=== PATIENT | female | born 1975 | race American Indian/Alaskan Native ===

== ENCOUNTER 2019-12-08 11:17 | Emergency (ER) | payer OTHER ==
--- NOTE | 2019-12-08 11:37 | Event Note ---
ED Screening Note Date of service: 12/08/19 Time: 11:34 ED Screening Note: 44 y o f presents with mid to right abd Pain x 2 days denies NVD 9/10 pain PMH: stroke Sep 2019, RECENT HOSPITALIZATION, htn OUT OF MEDS ELEVATION OF BP This initial assessment/diagnostic orders/clinical plan/treatment(s) is/are subject to change based on patients health status, clinical progression and re- assessment by fellow clinical providers in the ED. Further treatment and workup at subsequent clinical providers discretion. Patient/guardian urged not to elope from the ED as their condition may be serious if not clinically assessed and managed. Initial orders include: labs CT scan main Ed eval
[2019-12-08 12:18] LABS: Basophils # (Auto) 0.1 K/mm3 (0.0-0.1); Basophils % (Auto) 1.3 % (0.0-1.8); Eosinophils # (Auto) 0.1 K/mm3 (0.0-0.4); Eosinophils % (Auto) 1.1 % (0.0-4.3); Hematocrit 35.8 % (30.3-42.9); Hemoglobin 12.1 gm/dl (10.1-14.3); Lymphocytes # (Auto) 1.4 K/mm3 (1.2-5.4); Lymphocytes % (Auto) 24.8 % (13.4-35.0); Mean Corpuscular HGB Conc 34 % (30-34); Mean Corpuscular Volume 93 fl (79-97); Monocytes # (Auto) 0.4 K/mm3 (0.0-0.8); Monocytes % (Auto) 6.4 % (0.0-7.3); Platelet Count 397 K/mm3 (140-440); Red Blood Count 3.83 M/mm3 (3.65-5.03)
[2019-12-08 12:42] LABS: Albumin 3.4 g/dL (3.9-5); BUN/Creatinine Ratio 8; Blood Urea Nitrogen 6 mg/dL (7-17); Calcium 9.3 mg/dL (8.4-10.2); Hemolysis Index 6
[2019-12-08 12:51] LABS: Alanine Aminotransferase < 5 units/L (7-56)
--- NOTE | 2019-12-08 14:25 | Cat Scan Report ---
CT ABDOMEN AND PELVIS WITHOUT CONTRAST HISTORY: Right-sided abdominal pain COMPARISON: None. TECHNIQUE: Axial CT images were obtained through the abdomen and pelvis without IV contrast. Sagittal and coronal reformatted images. All CT scans at this location are performed using CT dose reduction for ALARA by means of automated exposure control. FINDINGS: CT ABDOMEN: Lung Bases: Clear. Liver: No significant abnormality. Biliary: No significant abnormality. Spleen: No significant abnormality. Unenlarged. Pancreas: No significant abnormality. Adrenals: No significant abnormality. Kidneys: No significant abnormality. Lymphatics: No lymphadenopathy. Vasculature: No significant abnormality. Bowel/Peritoneum: No significant abnormality. No free air. No free fluid. Normal appendix. CT PELVIS: : The uterus is markedly enlarged extending superior to the umbilicus. A 12 cm heterogeneous fibroi d is identified in the uterine fundus. A 7 cm heterogeneous fibroid is identified in the left lateral wall. A 4.2 cm heterogeneous fibroid is identified in the lower anterior wall. The ovaries and endom etrium are not clearly identified. Osseous Structures: No significant abnormality. Additional Findings: None IMPRESSION: Moderate to severe uterine fibroid disease as described. No acute inflammatory process is appreciated. Signer Name: Dru Thomson Jr, MD Signed: 12/08/2019 2:21 PM Workstation Name: [id number]
[2019-12-08] MEDS ORDERED: oxyCODONE /ACETAMINOPHEN 5-325MG TAB PO PRN (16:12)
[2019-12-08] MEDS ORDERED: carvediloL 6.25 MG TAB PO ONE (16:12)
--- NOTE | 2019-12-08 16:13 | Emergency Department Report ---
ED Abdominal Pain HPI - General Chief Complaint: Abdominal Pain Stated Complaint: RT SIDE EXTREME PAIN Time Seen by Provider: 12/08/19 11:31 Source: patient Mode of arrival: Wheelchair Limitations: No Limitations - History of Present Illness Initial Comments: This 44-year-old female presents to merged department with chief complaint of a gradual onset of severe pain in the right side of her lower abdomen. Patient rates as severe. Evaluated. The past medical history of hypertension and a hemorrhagic CVA. She is currently supposed to be on carvedilol, amlodipine and lisinopril but just ran out of her medications. She is not a primary care docto r. She denies any headache, weakness, slurred speech, facial droop or any other associated symptoms. Her only complaint today is right lower quadrant pain. She denies any associated fevers, chills, night sweats, headache, dizziness, blurry vision, nausea, vomiting, diarrhea, chest pain, shortness of breath or any other associated symptoms. - Related Data Previous Rx's Medication Instructions Recorded Last Taken Type Acetaminophen with Codeine 1 each PO Q6HR PRN #12 tablet 12/08/19 Unknown Rx [Acetaminophen-Codeine #2 TAB] amLODIPine 10 mg PO DAILY #20 tab 12/08/19 Unknown Rx carvediloL [Coreg] 12.5 mg PO BID #40 tablet 12/08/19 Unknown Rx lisinopriL [Zestril TAB] 20 mg PO QDAY #20 tablet 12/08/19 Unknown Rx Allergies Allergy/AdvReac Type Severity Reaction Status Date / Time No Known Allergies Allergy Unverified 12/08/19 11:24 ED Review of Systems ROS: Stated complaint: RT SIDE EXTREME PAIN Other details as noted in HPI Comment: All other systems reviewed and negative Constitutional: denies: chills, fever Eyes: denies: eye pain, eye discharge, vision change ENT: denies: ear pain, throat pain Respiratory: denies: cough, shortness of breath, wheezing Cardiovascular: denies: chest pain, palpitations Endocrine: no symptoms reported Gastrointestinal: as per HPI, abdominal pain. denies: nausea, diarrhea Genitourinary: denies: urgency, dysuria, discharge Musculoskeletal: denies: back pain, joint swelling, arthralgia Skin: denies: rash, lesions Neurological: denies: headache, weakness, paresthesias Psychiatric: denies: anxiety, depression Hematological/Lymphatic: denies: easy bleeding, easy bruising ED Past Medical Hx - Past Medical History Previous Medical History?: Yes Hx Hypertension: Yes Hx CVA: Yes Additional medical history: Hemorhagic stroke 2018 - Surgical History Past Surgical History?: Yes - Social History Smoking Status: Never Smoker Substance Use Type: None - Medications Home Medications: Home Medications Medication Instructions Recorded Confirmed Last Taken Type Acetaminophen with Codeine 1 each PO Q6HR PRN #12 tablet 12/08/19 Unknown Rx [Acetaminophen-Codeine #2 TAB] amLODIPine 10 mg PO DAILY #20 tab 12/08/19 Unknown Rx carvediloL [Coreg] 12.5 mg PO BID #40 tablet 12/08/19 Unknown Rx lisinopriL [Zestril TAB] 20 mg PO QDAY #20 tablet 12/08/19 Unknown Rx ED Physical Exam - General Limitations: No Limitations General appearance: alert, in no apparent distress - Head Head exam: Present: atraumatic, normocephalic - Eye Eye exam: Present: normal appearance, PERRL, EOMI Pupils: Present: normal accommodation - ENT ENT exam: Present: normal exam, normal orophraynx, mucous membranes moist - Neck Neck exam: Present: normal inspection, full ROM. Absent: tenderness, mening ismus - Respiratory Respiratory exam: Present: normal lung sounds bilaterally. Absent: respiratory distress, wheezes, rales, rhonchi, stridor - Cardiovascular Cardiovascular Exam: Present: regular rate, normal rhythm, normal heart sounds. Absent: systolic murmur, diastolic murmur, rubs, gallop - GI/Abdominal GI/Abdominal exam: Present: soft, tenderness (to the right lower quadrant over McBurney's point. No rebound or guarding. No CVA tenderness bilaterally.), normal bowel sounds. Absent: distended, guarding, rebound, rigid - Extremities Exam Extremities exam: Present: normal inspection, full ROM, normal capillary refill. Absent: tenderness - Back Exam Back exam: Present: normal inspection, full ROM. Absent: tenderness, CVA tenderness (R), CVA tenderness (L) - Neurological Exam Neurological exam: Present: alert, oriented X3, CN II-XII intact, normal gait, other (no focal neurologic deficits, normal strength and sensation of the bilateral upper and lower extremities.) - Psychiatric Psychiatric exam: Present: normal affect, normal mood - Skin Skin exam: Present: warm, dry, intact, normal color. Absent: rash ED Course Vital Signs 12/08/19 12/08/19 12/08/19 11:20 11:33 17:45 Temperature 98.5 F Pulse Rate 95 H 93 H 95 H Respiratory 18 18 Rate Blood Pressure 194/131 193/133 194/131 O2 Sat by Pulse 99 98 Oximetry ED Medical Decision Making - Lab Data Result diagrams: 12/08/19 12:02 12/08/19 12:02 Lab Results 12/08/19 12/08/19 12/08/19 Range/Units 12:02 12:02 12:02 WBC 5.8 (4.5-11.0) K/mm3 RBC 3.83 (3.65-5.03) M/mm3 Hgb 12.1 (10.1-14.3) gm/dl Hct 35.8 (30.3-42.9) % MCV 93 (79-97) fl MCH 32 (28-32) pg MCHC 34 (30-34) % RDW 15.0 (13.2-15.2) % Plt Count 397 (140-440) K/mm3 Lymph % (Auto) 24.8 (13.4-35.0) % [place] % (Auto) 6.4 (0.0-7.3) % Eos % (Auto) 1.1 (0.0-4.3) % Baso % (Auto) 1.3 (0.0-1.8) % Lymph # 1.4 (1.2-5.4) K/mm3 [place] # 0.4 (0.0-0.8) K/mm3 Eos # 0.1 (0.0-0.4) K/mm3 Baso # 0.1 (0.0-0.1) K/mm3 Seg Neutrophils % 66.4 (40.0-70.0) % Seg Neutrophils # 3.8 (1.8-7.7) K/mm3 Sodium 138 (137-145) mmol/L Potassium 3.8 (3.6-5.0) mmol/L Chloride 106.3 (98-107) mmol/L Carbon Dioxide 19 L (22-30) mmol/L Anion Gap 17 mmol/L BUN 6 L (7-17) mg/dL Creatinine 0.8 (0.7-1.2) mg/dL Estimated GFR > 60 ml/min BUN/Creatinine Ratio 8 % Glucose 104 H (65-100) mg/dL Calcium 9.3 (8.4-10.2) mg/dL Total Bilirubin 0.20 (0.1-1.2) mg/dL AST 8 (5-40) units/L ALT < 5 L (7-56) units/L Alkaline Phosphatase 87 (35-129) units/L Total Protein 8.0 (6.3-8.2) g/dL Albumin 3.4 L (3.9-5) g/dL Albumin/Globulin Ratio 0.7 % HCG, Quant < 2 (0-4) mIU/mL Urine Color (Yellow) Urine Turbidity (Clear) Urine pH (5.0-7.0) Ur Specific [place] (1.003-1.030) Urine Protein (Negative) mg/dL Urine Glucose (UA) (Negative) mg/dL Urine Ketones (Negative) mg/dL Urine Blood (Negative) Urine Nitrite (Negative) Urine Bilirubin (Negative) Urine Urobilinogen (<2.0) mg/dL Ur Leukocyte Esterase (Negative) Urine WBC (Auto) (0.0-6.0) /HPF Urine RBC (Auto) (0.0-6.0) /HPF U Epithel Cells (Auto) (0-13.0) /HPF Urine Mucus /HPF 12/08/19 Range/Units 17:40 WBC (4.5-11.0) K/mm3 RBC (3.65-5.03) M/mm3 Hgb (10.1-14.3) gm/dl Hct (30.3-42.9) % MCV (79-97) fl MCH (28-32) pg MCHC (30-34) % RDW (13.2-15.2) % Plt Count (140-440) K/mm3 Lymph % (Auto) (13.4-35.0) % [place] % (Auto) (0.0-7.3) % Eos % (Auto) (0.0-4.3) % Baso % (Auto) (0.0-1.8) % Lymph # (1.2-5.4) K/mm3 [place] # (0.0-0.8) K/mm3 Eos # (0.0-0.4) K/mm3 Baso # (0.0-0.1) K/mm3 Seg Neutrophils % (40.0-70.0) % Seg Neutrophils # (1.8-7.7) K/mm3 Sodium (137-145) mmol/L Potassium (3.6-5.0) mmol/L Chloride (98-107) mmol/L Carbon Dioxide (22-30) mmol/L Anion Gap mmol/L BUN (7-17) mg/dL Creatinine (0.7-1.2) mg/dL Estimated GFR ml/min BUN/Creatinine Ratio % Glucose (65-100) mg/dL Calcium (8.4-10.2) mg/dL Total Bilirubin (0.1-1.2) mg/dL AST (5-40) units/L ALT (7-56) units/L Alkaline Phosphatase (35-129) units/L Total Protein (6.3-8.2) g/dL Albumin (3.9-5) g/dL Albumin/Globulin Ratio % HCG, Quant (0-4) mIU/mL Urine Color Yellow (Yellow) Urine Turbidity Clear (Clear) Urine pH 5.0 (5.0-7.0) Ur Specific [place] 1.016 (1.003-1.030) Urine Protein <15 mg/dl (Negative) mg/dL Urine Glucose (UA) Neg (Negative) mg/dL Urine Ketones Neg (Negative) mg/dL Urine Blood Neg (Negative) Urine Nitrite Neg (Negative) Urine Bilirubin Neg (Negative) Urine Urobilinogen < 2.0 (<2.0) mg/dL Ur Leukocyte Esterase Neg (Negative) Urine WBC (Auto) < 1.0 (0.0-6.0) /HPF Urine RBC (Auto) 2.0 (0.0-6.0) /HPF U Epithel Cells (Auto) 1.0 (0-13.0) /HPF Urine Mucus Few /HPF - Radiology Data Radiology results: report reviewed Cat Scan Report Signed Patient: CHRISSIE SUH MR#: [id number] 0 : 1975 Acct:[id number] Age/Sex: 44 / F ADM Date: 12/08/19 Loc: ED Attending Dr: Ordering Physician: MT COCHRAN Date of Service: 12/08/19 Procedure(s): CT abdomen pelvis wo [facility] Accession Number(s): [id number] cc: MT COCHRAN CT ABDOMEN AND PELVIS WITHOUT CONTRAST HISTORY: Right-sided abdominal pain COMPARISON: None. TECHNIQUE: Axial CT images were obtained through the abdomen and pelvis without IV contrast. Sagittal and coronal reformatted images. All CT scans at this location are performed using CT dose reduction for ALARA by means of automated exposure control. FINDINGS: CT ABDOMEN: Lung Bases: Clear. Liver: No significant abnormality. Biliary: No significant abnormality. Spleen: No significant abnormality. Unenlarged. Pancreas: No significant abnormality. Adrenals: No significant abnormality. Kidneys: No significant abnormality. Lymphatics: No lymphadenopathy. Vasculature: No significant abnormality. Bowel/Peritoneum: No significant abnormality. No free air. No free fluid. Normal appendix. CT PELVIS: : The uterus is markedly enlarged extending superior to the umbilicus. A 12 cm heterogeneous fibroid is identified in the uterine fundus. A 7 cm heterogeneous fibroid is identified in the left lateral wall. A 4.2 cm heterogeneous fibroid is identified in the lower anterior wall. The ovaries and endometrium are not clearly identified. Osseous Structures: No significant abnormality. Additional Findings: None IMPRESSION: Moderate to severe uterine fibroid disease as described. No acute inflammatory process is appreciated. Signer Name: Dru Thomson Jr, MD Signed: 12/08/2019 2:21 PM Workstation Name: [id number] Transcribed By: TTR Dictated By: DRU THOMSON JR, MD Electronically Authenticated By: DRU THOMSON JR, MD Signed Date/Time: 12/08/19 1421 - Medical Decision Making Patient presented emergency department 3 days of severe lower abdominal pain worse in the right side. A differential including acute appendicitis however due to the fact that her white blood cell count was normal she was afebrile not have any vomiting and CT showed a normal appendix was suspicious for this. Also considered ovarian torsion however she had no large adnexal masses is not a sudden onset of pain. Also considered PID or a TOA the patient had no vaginal discharge, is in a monogamous relationship with one partner and is not concerned about STD exposure and deferred pelvic. Also considered small bowel obstruction hour without any vomiting and she is tolerating by mouth fluids since likely. Also considered UTI, pyelonephritis, nephrolithiasis however with a normal urine with no pyuria or hematuria with no CVA tenderness on exam this is unlikely. Patient had a CT scan that showed large uterine fibroids which she was known and states this does feel similar. She was given oral medication for pain reports some improvement. Labs were relatively unremarkable. We'll treat her pain and recommended outpatient follow-up with [facility]. Patient presented initially with elevated blood pressure. This is chronic and she is on lisinopril, amlodipine and carvedilol but has not taken it for the past week. She denies headache, dizziness, blurred vision, double vision, neurologic exam was unremarkable with an H&H of 0. Nonfocal exam. We did give her dose of her blood pressure medication here and recommended close follow-up with her primary care doctor. We'll also give [facility] follow-up for the fibroids. She was instructed to return emergently department immediately she will see changing worsening symptoms. Her and her partner at the bedside verbalize understanding of the diagnosis, treatment plan and follow-up instructions and all their questions were answered. - Differential Diagnosis nephrolithiasis, pyelonephritis, appendicitis Critical care attestation.: If time is entered above; I have spent that time in minutes in the direct care o f this critically ill patient, excluding procedure time. ED Disposition Clinical Impression: Uterine fibroid Qualifiers: Uterine leiomyoma location: unspecified location Qualified Code(s): D25.9 - Leiomyoma of uterus, unspecified Abdominal pain Qualifiers: Abdominal location: unspecified location Qualified Code(s): R10.9 - Unspecified abdominal pain Disposition: DC- TO HOME OR SELFCARE Is pt being admited?: No Does the pt Need Aspirin: No Condition: Stable Instructions: Abdominal Pain (ED) Prescriptions: Acetaminophen with Codeine [Acetaminophen-Codeine #2 TAB] 1 each PO Q6HR PRN #12 tablet PRN Reason: Pain amLODIPine 10 mg PO DAILY #20 tab carvediloL [Coreg] 12.5 mg PO BID #40 tablet lisinopriL [Zestril TAB] 20 mg PO QDAY #20 tablet Referrals: PRIMARY MD GAGE [Primary Care Provider] - 3-5 Days YOHANA GARCIA MD [Staff Physician] - 3-5 Days [facility] [Provider Group] - 3-5 Days FARAZ LOPEZ MD [Staff Physician] - 3-5 Days Time of Disposition: 18:15
[2019-12-08 17:54] LABS: Bilirubin,Urine NEG (Negative); Blood,Urine NEG (Negative); Color,Urine Yellow (Yellow); Mucus,Urine FEW /HPF; Protein,Urine <15 mg/dL mg/dL (Negative); Urobilinogen,Urine < 2.0 mg/dL (<2.0); WBC,Urine < 1.0 /HPF (0.0-6.0)
[2019-12-08 18:44] VITALS: BP 168/112
== END 2019-12-08 18:43 | disposition home or self-care (01) ==
LOC: ED 11:17
DX: D25.9 Leiomyoma of uterus, unspecified (principal); I10 Essential (primary) hypertension; Z86.73 Personal history of transient ischemic attack (TIA), and cerebral infarction without residual deficits; Z79.899 Other long term (current) drug therapy
CPT/HCPCS: 36415; 74176; 80053; 81001; 84702; 85025